=== PATIENT | male | born 1975 | race Caucasian/White ===

== ENCOUNTER 2021-11-13 01:56 | Day surgery (SDC) | payer OTHER, SELFPAY ==
[2021-10-30 09:26] VITALS: BMI 29.9
[2021-11-13] VITALS (8 sets, daily range): BP systolic 68–99; BP diastolic 47–69; PULSE 56–80; RESP 15–20; TEMP 36.1; O2SAT 95–100
--- NOTE | 2021-11-13 11:25 | WPDHPUPDATE1 ---
History and Physical Update Update Date/Time: 11/13/21 11:25 History and Physical has been reviewed, including an updated exam of the patient. There are NO changes in the patient's condition. Risks, benefits, and alternatives have been discussed and questions answered. Patient agrees to proceed with procedure.
--- NOTE | 2021-11-13 11:27 | WPDANESEPPF ---
Anes - Initial Pre Proc Eval Procedure: Operation Date: 11/13/21 12:30 Proposed Procedures p Esophagogastroduodenoscopy & Screening Colonoscopy - Delano Hamilton MD Date/Time: 11/13/21 11:27 Surgeon: Delano Hamilton MD Pre Op Diagnosis: GERD, neoplasm screening Patient Data Age: 46 Gender: M Height: 1.83 m Weight: 101.4 kg Last Vital Signs Temp 36.1 C L 11/13/21 11:11 Pulse 80 11/13/21 11:11 Resp 18 11/13/21 11:11 BP 98/63 L 11/13/21 11:11 Pulse Ox 98 11/13/21 11:11 O2 Del Method Room Air 11/13/21 11:11 Allergies Allergy/AdvReac Type Severity Reaction Status Date / Time No Known Allergies Allergy Verified 11/13/21 11:10 Home Medications Medication Instructions Recorded Confirmed Type esomeprazole magnesium 20 mg 20 mg PO DAILY 10/24/21 10/30/21 History capsule,delayed release (Nexium) famotidine 20 mg tablet 20 mg PO DAILY 10/24/21 10/30/21 History lisinopril 20 mg tablet 20 mg PO DAILY 10/24/21 10/30/21 History meloxicam 7.5 mg tablet 7.5 mg PO DAILY 10/24/21 10/30/21 History mirtazapine 45 mg tablet 45 mg PO DAILY 10/24/21 10/30/21 History sildenafil 100 mg tablet (Viagra) 100 mg PO DAILY PRN other 10/24/21 10/30/21 History trazodone 100 mg tablet 100 mg PO QHS PRN Sleep 10/24/21 10/30/21 History Patient hx anesthesia problems: none Family hx anesthesia problems: none Results Review: All pre-operative results and documents have been reviewed as part of the pre-operative evaluation. [facility] Past Medical History Medical History (Updated 10/24/21 @ 10:30 by SALOMON Vásquez) Hernia HTN (hypertension) Obese Surgical History Surgical History (Updated 10/24/21 @ 09:48 by Socrates Muro) H/O Achilles tendon repair History of surgery on lower extremity Social History Social History (Updated 10/24/21 @ 09:49 by Socrates Muro) Smoking packs per day: 0 Smoking cigarettes per day: 0.0 Smoking status: Never smoker Alcohol intake: never Substance use: never Substance use type: does not use Living arrangements: with family Spiritual care concerns: No Anes - Eval Final PreProcedure Day of Procedure 11/13/21 11:27 Patient weight: overweight Heart: regular rate and rhythm Lungs: clear to auscultation and normal air movement Airway: Mallampati scale class II Neurological: alert and oriented Last oral intake: >/= 8 hours ASA classification: II Emergent: no Anesthetic plan: proceed Anesthesia type and monitoring: general GIVS Results Review: All pre-operative results and documents have been reviewed as part of the pre-operative evaluation. Informed Consent: The patient's anesthetic plan and its attendant risks and benefits were discussed with the patient/family/POA. Questions were solicited and answers provided to the satisfaction of the patient/family/POA.
[2021-11-13] MEDS: LACTATED RINGERS 1,000 ML 150 ML IV CONT (11:29)
--- NOTE | 2021-11-13 12:04 | SUR.OPER ---
EGD ENDED AT 1159, COLONOSCOPY BEGAN AT 1204.
--- NOTE | 2022-07-20 15:11 | SUR.PREOP ---
Report to the Outpatient Waiting Room, entrance under the green pavilion located off [facility], at time 0600 on date 07/30/22. Planned Procedure Time: 0730. Time changes happen often and if your time is changed the preop area will call you the afternoon before. - You and your visitor will be asked to self-screen and do not enter if you have any COVID symptoms. - Only one visitor is requested with a max of two and NO children visitors are allowed at this time. - The patient visitor may be requested to leave or wait in car when not with patient due to distancing restrictions. - A mask is optional within the hospital at this time. Patients may have clear liquids (water, carbonated beverages, clear teas, apple juice) until 3 hours prior to surgery with a maximum of 20 ounces. - No food from midnight until time of surgery - Infants may have breast milk until 4 hours before surgery, formula 6 hours prior to surgery. - Children will be allowed to drink immediately following surgery. If applicable, please bring a bottle or sippy cup to assist with drinking. Juice, water, soda, and popsicles are readily available. For infants on formula, please bring formula the day of surgery. Pacifiers are allowed. Take the following medications with a SIP of water the morning of surgery: __N/A DO NOT STOP ANY OF YOUR OTHER PRESCRIPTION MEDICATIONS PRIOR TO SURGERY ?EXCEPT THE FOLLOWING Medications to discontinue per physician ____HOLD NEXIUM MORNING OF SURGERY Date to take last dose Please no make-up, nail belgian, hairspray, perfume, deodorant, or body powder the day of surgery. No jewelry (including any body piercings) or valuables the day of surgery, leave them at home. Please take a shower or bath the night before, or the morning of, surgery with an antibacterial soap. Wear comfortable, loose fitting clothing. Children are encouraged to wear pajamas. - Jewelry must be removed prior to entering the operating room. Rings and piercings that are not removed may be cut off. - The hospital will not accept responsibility for valuables. - Please leave all valuables, including medications, at home the day of surgery. If you are going home after surgery, a licensed catering truck driver must drive you home. - NO public transportation without another adult if you receive anesthesia. - We recommend that an adult stay with you for 24 hours following discharge. - We also recommend that you do not drive, make important decision, drink alcoholic beverages, or take any drugs that were not prescribed by your health care provider for at least 24 hours after your discharge time. For Pediatric surgeries, we recommend two adults accompany the child home. Follow any additional instructions given to you from your surgeon. If you or anyone in your household have experienced Covid symptoms in the past week, please notify your surgeon or the nurse liaison at the phone number below for possible testing. Telephone instructions given to _PATIENT_and asked if any additional questions and then verbalized understanding. Patient advised to call surgeon office or pre surgery nurse liaison [phone] if any additional questions.
== END 2021-11-13 12:57 | disposition home or self-care (01) ==
PROVIDERS: PCP Family Medicine; Visit Provider Internal Medicine Gastroenterology
PROC: 0DJ08ZZ Inspection of Upper Intestinal Tract, Via Natural or Artificial Opening Endoscopic (ICD-10-PCS; CPT 43235; principal; 2021-11-13 12:30)
DX: K21.9 Gastro-esophageal reflux disease without esophagitis (principal); R19.7 Diarrhea, unspecified; K64.8 Other hemorrhoids; I10 Essential (primary) hypertension; E66.9 Obesity, unspecified; Z68.30 Body mass index [BMI] 30.0-30.9, adult
CPT/HCPCS: 43235; 45378; J2704; J7120

== ENCOUNTER 2022-07-24 11:55 | Outpatient (CLI) | payer OTHER, SELFPAY ==
--- NOTE | 2022-07-24 12:04 | ECG_ITS ---
Measurements Intervals [place] Rate: 70 P: -8 ID: [id number] QRS: -10 QRSD: 103 T: 5 QT: 393 QTc: 425 Interpretive Statements SINUS RHYTHM DELAYED PRECORDIAL R/S TRANSITION BORDERLINE ECG NO PREVIOUS ECG AVAILABLE FOR COMPARISON Electronically Signed On 07-24-2022 12:36:45 CDT by Alon Kaur D.O.
== END 2022-07-24 11:56 | disposition home or self-care (01) ==
LOC: ANHSURGERY 11:59
PROVIDERS: Visit Provider Surgery
DX: Z01.818 Encounter for other preprocedural examination (principal); I10 Essential (primary) hypertension
CPT/HCPCS: 93005

== ENCOUNTER 2022-07-30 00:18 | Day surgery (SDC) | payer OTHER, SELFPAY ==
[2022-07-20 15:00] VITALS: BMI 31.1
[2022-07-30] VITALS (17 sets, daily range): BP systolic 108–137; BP diastolic 63–94; PULSE 65–87; RESP 12–20; TEMP 36.3–36.4; O2SAT 93–100
[2022-07-30] MEDS: ACETAMINOPHEN 500 MG TABLET 1000 MG PO (06:48)
--- NOTE | 2022-07-30 06:53 | P.PNAN_ITS ---
Anes - Initial Pre Proc Eval Procedure: Operation Date: 07/30/22 07:30 Proposed Procedures p Rectal Exam Under Anesthesia, Hemorrhoidectomy - Bia Moise MD Date/Time: 07/30/22 06:53 Surgeon: Bia Moise MD Pre Op Diagnosis: hemorrhoids Patient Data Age: 47 Gender: M Height: 1.83 m Weight: 109.2 kg Last Vital Signs Temp 36.4 C 07/30/22 06:31 Pulse 68 07/30/22 06:31 Resp 16 07/30/22 06:31 BP 125/76 07/30/22 06:31 Pulse Ox 95 07/30/22 06:31 O2 Del Method Room Air 07/30/22 06:31 Allergies Allergy/AdvReac Type Severity Reaction Status Date / Time No Known Allergies Allergy Verified 07/30/22 06:46 Home Medications Medication Instructions Recorded Confirmed Type esomeprazole magnesium 20 mg 20 mg PO DAILY 10/24/21 07/30/22 History capsule,delayed release (Nexium) lisinopril 20 mg tablet 20 mg PO PRN PRN Blood Pressure 10/24/21 07/30/22 History mirtazapine 45 mg tablet 45 mg PO DAILY 10/24/21 07/30/22 History trazodone 100 mg tablet 100 mg PO QHS PRN Sleep 10/24/21 07/30/22 History Patient hx anesthesia problems: none Family hx anesthesia problems: none Results Review: All pre-operative results and documents have been reviewed as part of the pre- operative evaluation. [facility] Past Medical History Medical History GERD (gastroesophageal reflux disease) Hernia HTN (hypertension) Obese CYNDEE (obstructive sleep apnea) Surgical History Surgical History H/O Achilles tendon repair History of inguinal hernia repair right inguinal hernia Social History Social History Smoking packs per day: 0 Smoking cigarettes per day: 0.0 Smoking status: Never smoker Alcohol intake: never Substance use: never Substance use type: does not use Living arrangements: with family Occupation/Education: occupation Additional occupation/education comments: [employer] Spiritual care concerns: No Anes - Eval Final PreProcedure Day of Procedure 07/30/22 06:53 Patient weight: obese Heart: regular rate and rhythm Lungs: clear to auscultation Airway: Mallampati scale class II Neurological: alert and oriented Last oral intake: >/= 8 hours ASA classification: III Emergent: no Anesthetic plan: proceed Anesthesia type and monitoring: general ETT and standard monitoring Results Review: All pre-operative results and documents have been reviewed as part of the pre- operative evaluation. Informed Consent: The patient's anesthetic plan and its attendant risks and benefits were discussed with the patient/family/POA. Questions were solicited and answers provided to the satisfaction of the patient/family/POA.
[2022-07-30] MEDS: LACTATED RINGERS 1,000 ML 30 ML IV CONT ×2 (06:58→08:45)
[2022-07-30] MEDS: KETOROLAC 15 MG/ML VIAL (*BKC) IV PUSH (07:00)
--- NOTE | 2022-07-30 07:25 | PM.IMHP ---
H&P: HPI History of Present Illness Date/Time: 07/30/22 07:25 Chief Complaint: hemorrhoids Narrative: Wander is a 47 y/o male who presents to the office at the request of Dr. Hamilton for evaluation of hemorrhoids. Patient reports external protrusion with associated bleeding with BM's and itching. He states he has been experiencing symptoms intermittently since 2016. Patient states symptoms have progressively worsened over the past year. He has tried witch reji and sitz baths with not much relief. Patient underwent a colonoscopy with Dr. Hamilton in October 2021 that revealed internal hemorrhoids. Review of Systems Review of Systems: All systems reviewed & are unremarkable except as noted in HPI and below PMFSH Past Medical History Medical History GERD (gastroesophageal reflux disease) Hernia HTN (hypertension) Obese CYNDEE (obstructive sleep apnea) Surgical History Surgical History H/O Achilles tendon repair History of inguinal hernia repair right inguinal hernia Social History Social History Smoking packs per day: 0 Smoking cigarettes per day: 0.0 Smoking status: Never smoker Alcohol intake: never Substance use: never Substance use type: does not use Living arrangements: with family Occupation/Education: occupation Additional occupation/education comments: [employer] Spiritual care concerns: No Meds Home Medications and Allergies Home Medications Medication Instructions Recorded Confirmed Type esomeprazole magnesium 20 mg 20 mg PO DAILY 10/24/21 07/30/22 History capsule,delayed release (Nexium) lisinopril 20 mg tablet 20 mg PO PRN PRN Blood Pressure 10/24/21 07/30/22 History mirtazapine 45 mg tablet 45 mg PO DAILY 10/24/21 07/30/22 History trazodone 100 mg tablet 100 mg PO QHS PRN Sleep 10/24/21 07/30/22 History Allergies Allergy/AdvReac Type Severity Reaction Status Date / Time No Known Allergies Allergy Verified 07/30/22 06:46 Vital Signs Vital Signs - 24 hr 07/30/22 06:31 Temperature 36.4 C Pulse Rate 68 Respiratory Rate 16 Blood Pressure 125/76 Pulse Oximetry 95 Oxygen Delivery Room Air Exam Const: General: cooperative, comfortable and no acute distress Resp: Auscultation: clear to auscultation bilaterally Cardio: Rate: regular rate Rhythm: regular rhythm GI: Inspection: normal to inspection and non-distended GI Palp: No abdominal tenderness, Yes Soft to palpation and No Tenderness to palpation present (GI) Rectal Exam: deferred Assessment and Plan Assessment and plan (1) Hemorrhoids: Code(s): K64.9 - Unspecified hemorrhoids Status: Acute Assessment and Plan: given worsening symptomatology will setup for EUA, hemorrhoidectomy
--- NOTE | 2022-07-30 07:27 | WPDHPUPDATE1 ---
History and Physical Update Update Date/Time: 07/30/22 07:27 History and Physical has been reviewed, including an updated exam of the patient. There are NO changes in the patient's condition. Risks, benefits, and alternatives have been discussed and questions answered. Patient agrees to proceed with procedure.
[2022-07-30] MEDS: ceFAZolin 2 GM/D5W 50 ML 2 GM/50 ML BAG IVPB (07:35)
[2022-07-30] MEDS: LIDOCAINE HCL 1% LOCAL INJ 10 ML VIAL 30 ML INFILTRATE (08:00)
[2022-07-30] MEDS: LIDOCAINE HCL 2% GEL UROJET 10 ML PKG MUCOUS MEM (08:28)
--- NOTE | 2022-07-30 08:49 | W.PM.PROC2 ---
Procedure Note - Detailed Date of Procedure 07/30/22 Pre-op Diagnosis rectal bleeding, hemorrhoids Post-op Diagnosis Same Procedure Performed Exam under anesthesia, internal hemorrhoidectomy 2 columns, biopsy friable bleeding tissue in the external anal canal Surgeon Bia Moise MD Anesthesia General Indications The patient is a 47-year-old male presenting to the office complaining of rectal bleeding, internal hemorrhoids. Given these findings, decision to proceed to OR for exam under anesthesia, hemorrhoidectomy. Findings Bleeding friable tissue in the anal canal resembling condylomas, internal hemorrhoids x2 in the left lateral and right anterior columns Description of Procedure The patient was taken to the operating room and placed in the prone position. After adequate induction of general anesthesia, the patient was prepped and draped in the normal sterile fashion. A time-out was done to verify the patient's identity, as well as the procedure being performed. Began by doing a bilateral pudendal nerve block. I then did a digital exam of the anal canal. There was noted to be friable tissue throughout the anal canal that bled with any manipulation. I then used the anal speculum to examine the canal. There was noted to be two internal hemorrhoid in the left lateral and right anterior columns. These hemorrhoids were slightly inflamed but not actively bleeding. Using the LigaSure device, I was able to excise both hemorrhoids. There continued to be bleeding in the anal canal from this friable tissue. I did take some biopsies of this tissue and this was sent to pathology for further review. I tried to gain hemostasis with the Bovie cautery however these areas continued to ooze. Given this, I used 2 0 chromic sutures to control the bleeding. This largely controlled the bleeding however there was still some slight oozing. I then placed a gel foam cover with lidocaine jelly in the rectal vault. I then packed the anal canal with a Kerlix dressing. The patient tolerated the procedure well and was hemodynamically stable throughout. He was extubated in the operating room postoperatively and will be transferred to the recovery room in stable condition. Estimated Blood Loss 300 Packing Yes Pathology Yes Complications No immediate complications Condition Stable Disposition PACU [facility] Billing Surgery - Charge Forward: Surgery Billing
[2022-07-30] MEDS: fentaNYL CITRATE INJ (*CRX) 100 MCG/2 ML VIAL 25 MCG IV PUSH ×5 (09:18→09:37)
[2022-07-30] MEDS: HYDROmorphone HCL INJ (*CRX) 1 MG/ML SYR 0.5 MG IV PUSH ×2 (10:02→10:07)
[2022-07-30] MEDS: HYDROcodone/acetaminophen (*CRX) 5-325 MG TABLET 1 TAB PO (11:42)
== END 2022-07-30 13:57 | disposition home or self-care (01) ==
PROVIDERS: Visit Provider Surgery
PROC: (CPT 46260; principal; 2022-07-30 07:30)
DX: K64.8 Other hemorrhoids (principal); K64.4 Residual hemorrhoidal skin tags; I10 Essential (primary) hypertension; G47.33 Obstructive sleep apnea (adult) (pediatric); K21.9 Gastro-esophageal reflux disease without esophagitis; E66.9 Obesity, unspecified; Z68.32 Body mass index [BMI] 32.0-32.9, adult
CPT/HCPCS: 46260; 88304; A9270; J0690; J1100; J1170; J1885; J2250; J2405; J2704; J3010; J7120